=== PATIENT | male | born 1995 | race Caucasian/White ===

== ENCOUNTER 2018-12-04 11:41 | Day surgery (SDC) | payer MEDICAID ==
[~2018-12-04 11:41] MED LIST: Buffered Lidocaine 1% SYRIN* 1 ML/SYRINGE INTRADERM ONE; Dexamethasone IV* 4 MG/ML 1 ML (4 MG) IV SLOW PU ONE; DiMENhydriNATE IV* 50 MG/ML VIAL IV PUSH PRN; Famotidine IV* 10 MG/ML 2 ML (20 mg) IV ONE; HYDROcodone/ACETAMIN 5-325 MG* 1 TAB PO PRN; Ketorolac INJ* 30 MG/ML 1 ML VIAL IV PRN; Lactated Ringers 1000 ML Bag* 1,000 ML IV SCH; Naloxone* 0.4 MG/ML 1 ML VIAL IV PRN; fentaNYL* 50 MCG/ML 2 ML VIAL (100 MCG VIAL) IV PRN; oxyCODONE/Acetamin 5/325 MG* TAB PO PRN
[2018-12-04] MEDS ORDERED: ceFAZolin 2 GM in NS PREMIX(*) 2 GM/100 ML BAG IVPB ONE ×2 (11:52)
[2018-12-04] MEDS ORDERED: Dexamethasone IV* 4 MG/ML 1 ML (4 MG) ONE ×2 (11:52)
[2018-12-04] MEDS ORDERED: Famotidine IV* 10 MG/ML 2 ML (20 mg) ONE ×2 (11:52)
[2018-12-04] MEDS ORDERED: fentaNYL* 50 MCG/ML 5 ML VIAL (250 MCG VIAL) ONE ×2 (12:34)
[2018-12-04] MEDS ORDERED: Midazolam* 1 MG/ML 5 ML VIAL (5 MG) ONE ×2 (12:34)
[2018-12-04] MEDS ORDERED: Lidocaine 2% PF * 5 ML VIAL ONE ×2 (12:35)
[2018-12-04] MEDS ORDERED: Propofol* 10 MG/ML 20 ML BTL ONE ×2 (12:35)
[2018-12-04] MEDS ORDERED: EPHEDrine (Pressors)* 50 MG/ML VIAL ONE ×2 (14:16)
[2018-12-04] MEDS ORDERED: Ondansetron INJ* 2 MG/ML VIAL ONE ×2 (15:36)
[2018-12-04] MEDS ORDERED: fentaNYL* 50 MCG/ML 2 ML VIAL (100 MCG VIAL) ONE ×2 (15:39)
[2018-12-04] MEDS ORDERED: oxyCODONE/Acetamin 5/325 MG* TAB ONE ×2 (16:42)
[2018-12-04] MEDS ORDERED: Ketorolac INJ* 30 MG/ML 1 ML VIAL ONE ×2 (16:42)
[2018-12-04 16:51] VITALS: BP 151/78
--- NOTE | 2018-12-05 04:00 | OP ---
DATE OF OPERATION: 12/04/18 - [facility] DATE OF : 89 SURGEON: Keith Swartz MD. DEHORNER: FUENTES Wick. An processing assistant was needed for the entirety of procedure to aid in positioning of the arm and retraction. ANESTHESIOLOGIST: Dr. Cha. ANESTHESIA: General. PRE-OP DIAGNOSIS: Right thumb severely comminuted intraarticular Faraz fracture involving the carpometacarpal joint. POST-OP DIAGNOSIS: Right thumb severely comminuted intraarticular Faraz fracture involving the carpometacarpal joint. OPERATIVE PROCEDURE: Open reduction internal fixation of right thumb intraarticular carpometacarpal joint Faraz fracture. INDICATIONS: Raisa has a severe wrist fracture. We talked about the risks and benefits and he wants to proceed with surgery. ESTIMATED BLOOD LOSS: 2 mL. COMPLICATIONS: None. FINDINGS: See above and below. DESCRIPTION OF PROCEDURE: Arnulfo was seen in preoperative holding area. The correct side, site and procedure were identified. We came back to the operating room, the arm was prepped and draped in the usual fashion and a time- out was performed. The arm was exsanguinated with the Esmarch and the tourniquet was inflated to 250 mmHg. I went ahead and made a curvilinear incision starting on the junction of the dorsal to glabrous skin over the metacarpal shaft and then curving down near the volar wrist flexion crease in Basilio type fashion. Dissection was carried down. The radial sensory nerve was identified. There was palmar branch that was identified and both sensory nerves were protected throughout the case. I went ahead and raised the capsular flaps off of the fracture to expose the carpometacarpal joint and the metacarpal shaft. There was a quite a bit of soft callus that was starting to form. I went ahead and cleaned off this with a curette, rongeur and a suction tip. I was then able to align the joint anatomically and secure it in place with two 0.8 mm K-wires. This helped the joint anatomically reduced. We had direct visualization of the joint. I had already cleaned off the shaft component as well. This was then brought back into reduction with the shaft and pin clamped into place. I checked the alignment. There was a little bit flexion through the articular component in the shaft. However, after trying to tweak the clamp couple of times and get it line up, it was clearly not going to line up without comminuting and fragmenting the small articular fragments and therefore, I decided to accept this few degrees of flexion. I then passed a combination of 1.0 and 1.25 mm K- wires across the different fracture fragments. I ended up getting very nice purchase and everything was very stable. The fracture was absolutely not going to take a plate, as the articular fragments were too many and very distal and small. Ultimately, we had very nice fixation with the wires. We irrigated out the wound copiously and went ahead and clipped the wires and then brought the fascia and the capsule back over the wires and closed the fascial layer with 3-0 PDS suture. Skin was then closed with 4-0 nylon suture after the wires had been poked through the skin. A 0.25% Marcaine was infiltrated all around the operative area. The wound was dressed with Xeroform , 4x4s and then a very well- padded thump spica splint up to the tip of the thumb was applied. The tourniquet was deflated. He was taken to the recovery room in stable condition. [id number]/[facility] #: [id number] [place]
== END 2018-12-04 17:32 | disposition home or self-care (01) ==
LOC: OR 11:41
PROVIDERS: ATTEND Orthopaedic Surgery Hand Surgery
DX: S62.221A Displaced Rolando's fracture, right hand, initial encounter for closed fracture (principal); F31.9 Bipolar disorder, unspecified; F43.10 Post-traumatic stress disorder, unspecified; F17.210 Nicotine dependence, cigarettes, uncomplicated; Z88.8 Allergy status to other drugs, medicaments and biological substances; W11.XXXA Fall on and from ladder, initial encounter; Y92.019 Unspecified place in single-family (private) house as the place of occurrence of the external cause
CPT/HCPCS: 76000; A9270-GY; C1776; J0690; J1100; J1885; J2250; J2405; J2704; J3010